=== PATIENT | female | born 1990 | race American Indian/Alaskan Native ===

== ENCOUNTER 2017-04-23 17:10 | Emergency (ER) | payer MEDICAID ==
[2017-04-23 17:47] VITALS: BMI 42.5
[2017-04-23 19:05] LABS: HEMATOCRIT 35.1 % (34.0-47.0); MEAN CELL VOLUME 91.3 fl (81.0-99.0); MEAN CORPUSCULAR HGB CONC 32.9 g/dL (33.0-37.0); RED CELL DISTRIBUTION WIDTH 13.7 % (11.5-14.5); WHITE BLOOD COUNT 10.5 K/uL (4.8-10.8)
[2017-04-23 19:17] LABS: ALKALINE PHOSPHATASE 245 U/L (38-126); ALT/SGPT 24 U/L (9-52); AST/SGOT 17 U/L (14-36); BILIRUBIN,TOTAL 0.2 mg/dl (0.2-1.3); BLOOD UREA NITROGEN 5 mg/dl (7-17); CALCIUM 9.5 mg/dL (8.4-10.2); CARBON DIOXIDE 21 mmol/L (22-30); CHLORIDE 109 mmol/L (98-107); GFR AFRICAN-AMERICAN > 60; GLUCOSE,RANDOM 82 mg/dL (65-105); POTASSIUM 3.8 MMOL/L (3.6-5.0); SODIUM 138 mmol/l (132-148); TOTAL PROTEIN 6.6 G/DL (6.3-8.2)
[2017-04-23 19:30] LABS: RBC URINE 4 /hpf (0-3); URINE BACTERIA OCC (<OCC); URINE BILIRUBIN NEGATIVE (NEGATIVE); URINE BLOOD NEGATIVE (NEGATIVE); URINE COLOR YELLOW (YELLOW); URINE GLUCOSE (UA) NEG (Normal); URINE KETONE NEGATIVE (NEGATIVE); URINE LEUKOCYTE ESTERASE TRACE Leu/uL (Negative); URINE PROTEIN 30 mg/dL (NEGATIVE); URINE UROBILINOGEN 0.2-1.0 mg/dL (0.2-1.0); WBC URINE 4 /hpf (0-5)
[2017-04-24 01:39] VITALS: BP 116/56; PULSE 94; RESP 20; TEMP 98.2; O2SAT 99
--- NOTE | 2017-04-24 07:47 | OBHP ---
Datetime: 04/23/2017 18:58 IP Adm Impression: Term, intrauterine IP Admit Plan: Observation/Evaluation Admit Comment, IP Provider: 26 yo with IUP at 40.4 weeks, confirmed by u/s at 19.5 weeks. Was sent over from [facility] today due to elevated BP of 147/88 and +1 protein on urine dipstick. Denies contractions, vaginal bleeding, loss of fluid. Feels strong movements. Last sexual activity in August. Past OBHX: 1 SAB at 11 weeks, 2014. 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 Medical hx: denies Surg hx: denies Social hx: former smoker, smoked until 19 weeks into because she didn't know she was pre gnant. denies alcohol use during . denies drug use. Medications: vitamins Allergies: NKDA care: [facility], Dr. Shaver labs: GBS neg. HIV neg. HbsAg neg. RPR nonreactive. Rubella immune. GC/CL neg. Blood type : A+. TDap 02/05/17. ROS: denies chest pain, shortness of breath, nausea, vomitting, headache, dizziness, burning with urination PE: Gen: AAOx3 CV: S1,S2, RRR Resp: clear to auscultation, normal respiratory effort Abd: gravid, +BS Extremities: no pitting edema Assessment: 26 yo with IUP at 40.4 weeks with elevated BP. Plan: preeclampsia workup: cbc, cmp, UA, uric acid, fibrinogen. monitor BP. -[id number] OB Hospitalist note: This pt was seen and examined by me. Agree with above note. MAHNDO Extremities - PN: Normal Abdomen - PN: Normal Back - PN: Normal Lungs - PN: Normal Heart - PN: Normal Thyroid - PN: Not Done Neurologic - PN: Normal HEENT - PN: Normal General - PN: Normal FHR - Baseline A Provider: 160 Comments, ACOG Physical Exam: ROS: General: no weakness; no fatigue HEENT: no VILLALPANDO; no visual dist CV: no palpitations; no no CP GI: no N/V no diarhea : no F/U/D MS: No joint pain Gestation - Est Wks by US: 40.4 IP Hx Assessment: The History has been Reviewed and is Current Vital Signs Provider: Reviewed IP Chief Complaint: Signs/Symptoms Gestational HTN NICHD Variability Prov Fetus A: Moderate 6-25bpm NICHD Accel Fetus A IP Provider: 15X15 FHR Category Provider Fetus A: Category I NICHD Decel Fetus A IP Provider: None
--- NOTE | 2017-04-24 07:49 | OBDCSUM ---
Datetime: 04/23/2017 21:03 Discharged to, Provider: Home Follow up at, Provider: Dr. Christiana Padgett Disch Instr Activity: Normal activity Disch Instr Diet: Regular Discharge Time: 04/23/2017 21:04 Follow up in weeks, Provider: 04/25/2017 for BP check as advised by Dr. Hart Disch Referrals: None Discharge Diagnosis Prov Other: Elevated BP - no evidence of pre-eclampsia
== END 2017-04-23 21:30 | disposition home or self-care (01) ==
LOC: H.EROB2 17:10
DX: O13.3 Gestational [pregnancy-induced] hypertension without significant proteinuria, third trimester (principal); O48.0 Post-term pregnancy; Z3A.40 40 weeks gestation of pregnancy

== ENCOUNTER 2017-04-25 11:36 | Inpatient (IN) | payer MEDICAID ==
[2017-04-25] MEDS ORDERED: Lactated Ringer's 1,000 ML IV SCH (13:15)
[2017-04-25 13:30] LABS: BASO % 0.3 % (0.0-2.0); EOS # 0.1 K/uL (0.0-0.7); EOS % 0.5 % (0.0-4.0); HEMATOCRIT 35.9 % (34.0-47.0); LYMPH # 1.8 K/uL (1.0-4.3); LYMPH % 18.1 % (20.0-40.0); MEAN CORPUSCULAR HEMOGLOBIN 30.3 pg (27.0-31.0); MEAN CORPUSCULAR HGB CONC 33.3 g/dL (33.0-37.0); MEAN PLATELET VOLUME 9.3 fl (7.2-11.7); MONO # 0.5 K/uL (0.0-0.8); MONO % 5.2 % (0.0-10.0); NEUT # 7.5 K/uL (1.8-7.0); NEUT % 75.9 % (50.0-75.0); RED CELL DISTRIBUTION WIDTH 14.1 % (11.5-14.5); WHITE BLOOD COUNT 9.9 K/uL (4.8-10.8)
--- NOTE | 2017-04-25 16:16 | OBADHP ---
Datetime: 04/25/2017 14:38 Admit Comment, IP Provider: [facility]. Elevated BPs noted today in office. Pt observed here 2days ago for elev bps. 24hr urine 110mg of protein. 24yo denies ctxs, srom, decreased fm, h/a, scotomata, ruq pain, midepig or ruq abd pain. At 40.4 weeks, confirmed by u/s at 19.5 weeks. Last sexual activity in August. Past OBHX: 1 SAB at 11 weeks, 2014. 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 Medical hx: denies Surg hx: denies Social hx: former smoker, smoked until 19 weeks into because she didn't know she was pre gnant. denies alcohol use during . denies drug use. Medications: vitamins Allergies: NKDA care: [facility], Dr. Shaver labs: GBS neg. HIV neg. HbsAg neg. RPR nonreactive. Rubella immune. GC/CL neg. Blood type : A+. TDap 02/05/17. ROS: denies chest pain, shortness of breath, nausea, vomitting, headache, dizziness, burning with urination PE: Gen: AAOx3 CV: S1,S2, RRR Resp: clear to auscultation, normal respiratory effort Abd: gravid, +BS Extremities: no pitting edema; +2/4 Assessment: 26 yo with IUP at 40.6 Gestational HTN. Plan: admit induce with cytotec cbc, cmp, Pelvic Type - PN: Adequate Extremities - PN: Normal Abdomen - PN: Normal Back - PN: Normal Lungs - PN: Normal Heart - PN: Abnormal Neurologic - PN: Normal HEENT - PN: Normal General - PN: Normal Presentation-Admit: Vertex FHR - Baseline A Provider: 160 Membranes, Provider: Intact Contraction Comments Provider: no Vital Signs Provider: Reviewed Vital Signs Provider Details: 110-160/70-90 (Annotations: Data stored by CPN on behalf of user) IP Chief Complaint: Signs/Symptoms Gestational HTN NICHD Variability Prov Fetus A: Moderate 6-25bpm NICHD Accel Fetus A IP Provider: 15X15 FHR Category Provider Fetus A: Category I NICHD Decel Fetus A IP Provider: None Dilatation, Provider: 1 Effacement, Provider: 20 Station, Provider: -3 Genitourinary Exam: Normal EGA AdmitDate IP: 40.6 IP Adm Impression: Postterm, intrauterine IP Admit Plan: Admit to unit; Initiate labor protocol Datetime: 04/23/2017 18:58 Thyroid - PN: Not Done Comments, ACOG Physical Exam: ROS: General: no weakness; no fatigue HEENT: no VILLALPANDO; no visual dist CV: no palpitations; no no CP GI: no N/V no diarhea : no F/U/D MS: No joint pain Gestation - Est Wks by US: 40.4 IP Hx Assessment: The History has been Reviewed and is Current
[2017-04-26] MEDS ORDERED: Oxytocin 30 units/LR 500ML 30 U/500 ML BAG IV ONE (09:18)
[2017-04-26] MEDS ORDERED: Fentanyl/Bupivacaine HCl 250 ML EPI ONE (10:25)
[2017-04-26] MEDS ORDERED: Lidocaine 1% Inj (20ml) ONE (11:41)
[2017-04-26] MEDS ORDERED: Lidocaine 2% PF (10 ml) Amp ONE (12:05)
[2017-04-26] MEDS ORDERED: Benzocaine/Menthol SPRAY TOP PRN ×2 (12:36→15:09)
[2017-04-26] MEDS ORDERED: Oxycodone/Acetaminophen 5/325 mg Tab PO PRN ×2 (12:36→15:09)
--- NOTE | 2017-04-26 12:52 | OBDS ---
DELIVERY PERSONNEL Delivery Doctor: Jadyn Sloan MD MATERNAL INFORMATION Provider Comments: Pt progressed to complete and pushed to deliver a viable male through ligh t meconium-stained fluid at 11:52 am. Apgars 9 and 9. Wt 7#6.4. placed on mother's abdomen. Cord clamped and cut. Cord blood collected. Placenta delivered spontaneously intact w/ 3vc at 11:5 5am. Bimanual massage done to control pp bleeding. Vaginal second degree tear repaired w/ 2-0 rapid e. Vagina packed. Ceballos placed in bladder. Pt and baby tolerated procedure well. EBL 300 mL LABOR SUMMARY EDC: 04/19/2017 00:00 No. Babies in Womb: 1 Attempted: No Labor Anesthesia: Epidural LABOR INFORMATION Reason for Induction: Gest. HTN/PreEclampsia/Eclampsia Cervical Ripening Agents: Cytotec @ 50 Group B Beta Strep: Negative Steroids Given: None Reason Steroids Not Administered: Not Applicable MEMBRANES Membranes Rupture Method: Spontaneous Amniotic Fluid Color: Light Meconium Amniotic Fluid Amount: Small STAGES OF LABOR Stage 3 hrs: 0 Stage 3 min: 3 VAGINAL DELIVERY Initial Vag Sponge Count: 20 BABY A INFORMATION Infant Delivery Date/Time: 04/26/2017 11:52 Method of Delivery: Vaginal Born in Route : No : N/A Forceps: N/A Vacuum Extraction: N/A Shoulder Dystocia : No SHOULDER DYSTOCIA BABY A Infant Delivery Date/Time: 04/26/2017 11:52 PRESENTATION/POSITION BABY A Presentation: Cephalic Cephalic Presentation: Vertex Breech Presentation: N/A PLACENTA INFORMATION BABY A Placenta Delivery Time : 04/26/2017 11:55 Placenta Method of Delivery: Spontaneous Placenta Status: Delivered SCORES BABY A Heart Rate 1 min: >100 bpm Resp Effort 1 min: Good Cry Reflex Irritability 1 min: Cough or Sneeze or Pulls Away Muscle Tone 1 min: Active Motion Color 1 min: Body [place], Extremities Blue SCORE 1 MIN: 9 Heart Rate 5 min: >100 bpm Resp Effort 5 min: Good Cry Reflex Irritability 5 min: Cough or Sneeze or Pulls Away Muscle Tone 5 min: Active Motion Color 5 min: Body [place], Extremities Blue SCORE 5 MIN: 9 INFORMATION BABY A Gestational Age at Delivery: 41.0 Gestational Status: Term Outcome : Liveborn Condition : Stable Infant Sex: Male WEIGHT/LENGTH BABY A Birthweight (gms): 3355 Weight (lb): 7 Weight (oz): 6 CORD INFORMATION BABY A No. Cord Vessels: 3 Nuchal Cord : N/A Cord Blood Taken: Yes
[2017-04-26] MEDS ORDERED: Lactated Ringer's 1,000 ML IV SCH (15:09)
--- NOTE | 2017-04-27 07:52 | OBPPN ---
Datetime: 04/27/2017 06:47 PP Pain Prov: Within normal limits PP Nausea Prov: Denies PP Flatus Prov: Yes PP Breasts Prov: Normal PP Heart Prov: Normal PP Lungs Prov: Normal PP Abdomen/Uterus Prov: Normal PP Lochia Prov: Normal PP Vulva/Perineum Prov: Normal PP CVA Tenderness Prov: Normal PP Extremities Prov: Normal PP C/S Incision Prov: Normal PP Progress Prov: Normal PP Impression Prov: Normal progression PP Plan Prov: Continue present management PP Progress Note Prov: PPD1 S: 26y/o now seen and examined at bedside. No acute overnight events. Pt reports mild pelvic pain controlled with pain meds. Not ambulating due to cabrera. Breast feeding without difficulty. Compl ains of cramping while breast feeding and occasional difficulty latching. Tolerating PO diet well. Lo smith is similar to menses volume. Voiding freely with no blood noted. No BM, + pass gas per rectum. D enies fever/chills, diarrhea, [place]/vomiting, CP/SOB, lightheadedness, calf pain. Desires circumcision for O: BP130/60, 95 Blood Type: A+ Rubella Immune Physical exam: General: A_O HEENT: White Sclera, pink conjunctiva, oral mucosa moist Breast: Enjorged/non tender/no lesions CVS: RRR, nrml S1, S2, no murmurs Lungs: Clear to auscultation BL Abdomen: non distended, +BS, firm fundus @ umbilical level. Soft, appropriate TTP Genital: Packed, no active bleeding seen, + Cabrera Neuro/Psych: AAO x3, preserved affect and mood Assessment: 26 y/o female now s/p devliery on date with 2nd degree lacerations . Pt afebrile for 18 hours, tolerating pain with meds, tolerating oral intake, adequate urine output. Doing well on PPD1. Plan: Discontinue IV fluids, Continue with regular diet. Discontinue Cabrera today OOB with caution SCD's for DVT prophylaxis Percocet 5/325mg 1-2 tablets po q6 for mod/sev pain Ibuprofen 600mg 1 tab q6 vs Tyelenol 650mg 1 tab for mild pain Encourage and ambulation; Told patient she can still ambulate with cabrera C/W Sennakot 17.2mg Circumcision for baby boy Anticipated D/C to home on 04/28 OB Hospitalist Addendum: Pt seen and examined by me. Agree w/ above. PPD 1 s/p , doing well, breast feeding. Vaginal packing removed. Cabrera to be removed now. Will continue to monitor lochia. (ES) Vital Signs Provider PP: Reviewed; Within Normal Limits
[2017-04-27 08:03] LABS: BASO # 0.1 K/uL (0.0-0.2); BASO % 0.5 % (0.0-2.0); EOS # 0.1 K/uL (0.0-0.7); EOS % 0.5 % (0.0-4.0); HEMATOCRIT 31.9 % (34.0-47.0); LYMPH # 2.1 K/uL (1.0-4.3); LYMPH % 19.1 % (20.0-40.0); MEAN CELL VOLUME 90.6 fl (81.0-99.0); MEAN CORPUSCULAR HEMOGLOBIN 30.8 pg (27.0-31.0); MEAN PLATELET VOLUME 8.7 fl (7.2-11.7); MONO # 0.7 K/uL (0.0-0.8); MONO % 6.2 % (0.0-10.0); NEUT # 8.2 K/uL (1.8-7.0); NEUT % 73.7 % (50.0-75.0); NRBC % 0.1 % (0.0-0.0); RED CELL DISTRIBUTION WIDTH 14.3 % (11.5-14.5); WHITE BLOOD COUNT 11.1 K/uL (4.8-10.8)
--- NOTE | 2017-04-28 09:06 | OBDCSUM ---
Datetime: 04/28/2017 07:32 Discharged to, Provider: Home Follow up at, Provider: Dr. Stover Disch Instr Activity: Normal activity Disch Instr Diet: Regular Discharge Instructions, Provider: Routine instructions given Discharge Diagnosis, Provider: Term Delivered Discharge Time: 04/28/2017 10:00 Follow up in weeks, Provider: 4-6 weeks post Disch Referrals: None Contraception discussed, Prov: Yes Disch Activity Restrictions: No sexual activity; Nothing in vagina - [place], tampons, douche Discharge Comment, Provider: Discharge Summary DOA: 04/26/2017 EGA: 40.6 Diagnosis: NVD Term PRisk factors: none summary of : 26 yo F L_D summary DOL: 04/26/2017 at 11:52 NVD NB: M : 9/9 Weight: 3355g PP summary No serious complications during PP. Lochia= menses, mild pain, controlled with medications Rubella immune, Tdap 02/05/17 Blood type: A+ CBC pp: 10.8/31.9 Discharge Date: 04/28/2017 Time 10:00 AM Discharge Instructions: -encourage -percocet/Ibuprofen for pain PRN -Senokot 17.2 mg qHS for constipation -Ambulate as tolerated -f/u NB visit and PP visit --- Yasir Chan, PGY-1 Contraception after Delivery: Foam/Condoms Datetime: 04/23/2017 21:03 Discharge Instructions, Provider: Routine instructions given Contraception discussed, Prov: Yes
--- NOTE | 2017-04-28 09:06 | OBPPN ---
Datetime: 04/28/2017 07:25 PP Pain Prov: Within normal limits PP Nausea Prov: Denies PP Flatus Prov: Yes PP BM Prov: No PP Breasts Prov: Not Done PP Heart Prov: Normal PP Lungs Prov: Normal PP Abdomen/Uterus Prov: Normal PP Lochia Prov: Normal PP Vulva/Perineum Prov: Not Done PP CVA Tenderness Prov: Normal PP Extremities Prov: Normal PP C/S Incision Prov: Not Applicable PP Progress Prov: Normal PP Impression Prov: Normal progression PP Plan Prov: Continue present management PP Progress Note Prov: PPD2 S: 26y/o now seen and examined at bedside. No acute overnight events. Pt reports mild pelvic pain controlled with pain meds. Not ambulating due to cabrera. Breast feeding without difficulty. Compl ains of cramping while breast feeding and occasional difficulty latching. Tolerating PO diet well. Lo smith is similar to menses volume. Voiding freely with no blood noted. No BM, + pass gas per rectum. D enies fever/chills, diarrhea, nausea/vomiting, CP/SOB, lightheadedness, calf pain. Desires circumcision for O: BP130/60, 95 Blood Type: A+ Rubella Immune Physical exam: General: A_O HEENT: White Sclera, pink conjunctiva, oral mucosa moist CVS: RRR, nrml S1, S2, no murmurs Lungs: Clear to auscultation BL Abdomen: non distended, +BS, firm fundus @ umbilical level. Soft, appropriate TTP Neuro/Psych: AAO x3, preserved affect and mood Assessment: 26 y/o female now s/p devliery on date with 2nd degree lacerations . Pt afebrile, tolera ting pain with meds, tolerating oral intake, adequate urine output. Doing well on PPD2. Plan: Discontinue IV fluids, Continue with regular diet. Discontinued Cabrera OOB with caution SCD Percocet 5/325mg 1-2 tablets po q6 for mod/sev pain Ibuprofen 600mg 1 tab q6 vs Tyelenol 650mg 1 tab for mild pain Encourage and ambulation C/W Sennakot 17.2mg Circumcision for baby boy Anticipated D/C to home on 04/28 Yasir Chan, PGY1 OB Hospitalist Addendum: Pt seen and examined by me. Agree w/ above. PPD 2 s/p , doing well, breast and bottle feeding. Discharge home today. (ES) IP PP Procedures: None Vital Signs Provider PP: Reviewed; Within Normal Limits
[2017-04-28 19:07] VITALS: BP 117/60; PULSE 86; RESP 20; TEMP 98.6; O2SAT 100
== END 2017-04-28 13:55 | disposition home or self-care (01) | DRG 372 ==
LOC: H.L&D 13:04 → H.OB/GYN 04-26 14:20
PROVIDERS: ADMIT Obstetrics & Gynecology; ATTEND Obstetrics & Gynecology
PROC: 4A1HXCZ Monitoring of Products of Conception, Cardiac Rate, External Approach (ICD-10-PCS; 2017-04-25)
PROC: 10E0XZZ Delivery of Products of Conception, External Approach (ICD-10-PCS; principal; 2017-04-26)
PROC: 0KQM0ZZ Repair Perineum Muscle, Open Approach (ICD-10-PCS; 2017-04-26)
DX: O48.0 Post-term pregnancy (principal); O72.1 Other immediate postpartum hemorrhage; O13.4 Gestational [pregnancy-induced] hypertension without significant proteinuria, complicating childbirth; O70.1 Second degree perineal laceration during delivery; Z37.0 Single live birth; O77.0 Labor and delivery complicated by meconium in amniotic fluid; Z3A.40 40 weeks gestation of pregnancy; Z87.891 Personal history of nicotine dependence